=== PATIENT | female | born 1955 | race African-American/Black ===

== ENCOUNTER 2017-02-15 11:41 | Emergency (ER) | payer MEDICARE, OTHER ==
[~2017-02-15] VITALS: Ht 162.6 cm; Wt 79.5 kg
[2017-02-15] MEDS ORDERED: ACETAMINOPHEN 500 MG TABLET PO ONE (12:00)
[2017-02-15] MEDS ORDERED: TraMADol HCL 50 MG TABLET PO ONE (12:00)
[2017-02-15] MEDS ORDERED: DIPH50 PO (12:03)
[2017-02-15] MEDS ORDERED: LISI-662 PO (12:03)
[2017-02-15] MEDS ORDERED: LEVO100 PO (12:03)
[2017-02-15] MEDS ORDERED: TRAM50TA4 PO (12:03)
[2017-02-15] MEDS ORDERED: SIMV-261 PO (12:03)
[2017-02-15] MEDS ORDERED: ALBU90AE IH (12:03)
[2017-02-15] MEDS ORDERED: HYDR25TA PO (12:03)
[2017-02-15] MEDS ORDERED: IBUP-2070 PO (12:03)
[2017-02-15] MEDS ORDERED: AMLO-512 PO (12:03)
[2017-02-15 12:14] LABS: GLUCOSE,POINT OF CARE 108 MG/DL (70-110)
[2017-02-15 13:03] LABS: INFLUENZA TYPE B NEGATIVE FOR TYPE B (NEGATIVE)
[2017-02-15 16:49] VITALS: BP 118/88
== END 2017-02-15 16:59 | disposition home or self-care (01) ==
LOC: EMS 11:41
DX: M50.923 Unspecified cervical disc disorder at C6-C7 level (principal); M50.921 Unspecified cervical disc disorder at C4-C5 level; M54.12 Radiculopathy, cervical region; R11.2 Nausea with vomiting, unspecified; R05 Cough; F17.210 Nicotine dependence, cigarettes, uncomplicated; I10 Essential (primary) hypertension; E03.9 Hypothyroidism, unspecified; M19.90 Unspecified osteoarthritis, unspecified site
CPT/HCPCS: 72125; 82948; 82962; 87804; 93005; 99285